=== PATIENT | female | born 1975 | race Caucasian/White ===

== ENCOUNTER 2017-03-07 14:32 | Emergency (ER) | payer MEDICAID ==
--- NOTE | 2017-03-07 14:53 | CPEKG ---
Heart Rate: 90 RR Interval: 667 P-R Interval: 136 QRSD Interval: 80 QT Interval: 376 QTC Interval: 460 P [place]: 73 QRS [place]: 58 T Wave [place]: 61 EKG Severity - BORDERLINE ECG - EKG Impression: SINUS RHYTHM EKG Impression: BORDERLINE R WAVE PROGRESSION, ANTERIOR LEADS EKG Impression: BORDERLINE T ABNORMALITIES, ANT-LAT LEADS Electronically Signed By: Severiano Villagomez 07-Mar-2017 21:05:19
--- NOTE | 2017-03-07 15:06 | EDPHY ---
H & P Stated Complaint: sob/anxious/ feels hr is fast hx anxiety/panic Time Seen by Provider: 03/07/17 15:04 - Personal History LMP (Females 10-55): 8-14 Days Ago Current Tetanus/Diphtheria Vaccine: Unsure - Medical/Surgical History Hx Asthma: No Hx Chronic Respiratory Disease: No Hx Diabetes: Yes Hx Cardiac Disease: No Hx Renal Disease: No Hx Cirrhosis: No Hx Alcoholism: No Hx HIV/AIDS: No Hx Splenectomy or Spleen Trauma: No Other PMH: panic anxiety/diabetic tubal ligation - Social History Smoking Status: Current every day smoker Constitutional: Initial Vital Signs Temperature (C) 36.5 C 03/07/17 14:40 Heart Rate 104 H 03/07/17 14:40 Respiratory Rate 20 03/07/17 14:40 Blood Pressure 136/81 H 03/07/17 14:40 O2 Sat (%) 98 03/07/17 14:40 O2 Delivery Mode Room Air Allergies/Adverse Reactions: Penicillins Allergy (Verified 03/07/17 14:38) Sulfa (Sulfonamide Antibiotics) Allergy (Verified 03/07/17 14:38) Home Medications: Medication Instructions Recorded HUMULIN R 03/07/17 novoLOG 03/07/17 Medical Decision Making ED Course/Re-evaluation: CHIEF COMPLAINT: Panic attack HISTORY OF PRESENT ILLNESS: The patient is a 41 y/o female with a history of panic attacks and diabetes complaining of now-resolved tachypnea, rapid heart rate, and bilateral hand tingling onset this afternoon. She knew she was having a panic attack until she noticed hand and face tingling, which she has never had before and concerned her enough to come into the ED for evaluation. Her symptoms have resolved upon my assessment. She does not know what causes her panic attacks and states they have been occurring more frequently. She does not take any medication to treat them and says she can normally control them She notes her BGL was normal on the way to the ED. She denies any current complaints , recent illness, or recent trauma. No neurologic symptoms apart from now resolved bilateral hand paresthesias while hyperventilation. REVIEW OF SYSTEMS: A 10 point review of systems was performed and is negative with the exception of the elements mentioned in the history of present illness. PHYSICAL EXAM: HR, BP, O2 Sat, RR. Temp noted General Appearance: Alert, well hydrated, appropriate, and non-toxic appearing. Head: Atraumatic without scalp tenderness or obvious injury Eyes: Pupils equal, round, reactive to light and accommodation, EOMI, no trauma , no injection. Nose: Atraumatic, no rhinorrhea, clear. Throat: Mucus membranes moist. Neck: Supple, nontender, no lymphadenopathy. Respiratory: No retractions, no distress, no wheezes, and no accessory muscle use. Lungs are clear to auscultation bilaterally. Cardiovascular: Regular rate and rhythm, no murmurs, rubs, or gallops. Good capillary refill all extremities. Gastrointestinal: Abdomen is soft, nontender, non-distended, no masses, no rebound, no guarding, no peritoneal signs. Musculoskeletal: Normal active ROM of all extremities, atraumatic. Neurological: Alert, appropriate, and interactive. The patient has non-focal cranial nerves, motor, sensory, and cerebellar exam. Skin: No rashes, good turgor, no nodules on palpation. Past medical history: Diabetes - insulin Past surgical history: Noncontributory Family history: Noncontributory Social history: , lives in [place]. Smoker. The 12 lead EKG was interpreted by myself. Sinus mechanism. See hard copy and/ or "tracemaster" electronic copy for interpretation. DIFFERENTIAL DIAGNOSIS: The differential diagnosis for the patient's symptoms included but was not limited to panic attack, anxiety disorder, cardiac causes. MEDICAL DECISION MAKING: This is a 41 y/o female with history of panic attacks who presents for evaluation after she experienced hyperventilation, rapid heart rate, and bilateral hand paresthesias this afternoon. She is completely asymptomatic on assessment and attributes her symptoms to a panic attack. No cardiac disease history. Exam is unremarkable. EKG is normal. She would like to go home. Standard return and follow up instructions discussed. She is comfortable with this plan. Departure - Departure Disposition: Home, Routine, Self-Care Clinical Impression: Panic attack Condition: Good Instructions: Panic Attack (ED) Additional Instructions: Please follow up with your primary care provider and/or psychiatrist to determine management plan for your panic attacks. Return to the ED for any worsening of condition. Referrals: KEERTHI,ROXANNK [Other] - As per Instructions [facility] [Outside] - As per Instructions Report Scribed for: Severiano Villagomez Report Scribed by: Tamara Mcgill Date of Report: 03/07/17 Time of Report: 15:11
[2017-03-07 15:50] VITALS: BP 130/86; PULSE 96; RESP 16; TEMP 97.9; O2SAT 99
== END 2017-03-07 15:50 | disposition home or self-care (01) ==
DX: F41.0 Panic disorder [episodic paroxysmal anxiety] (principal); E11.9 Type 2 diabetes mellitus without complications; F17.200 Nicotine dependence, unspecified, uncomplicated; Z79.4 Long term (current) use of insulin